=== PATIENT | female | born 1980 | race Caucasian/White ===

== ENCOUNTER → 2022-11-02 | Outpatient (CLI) | payer OTHER | END | disposition home or self-care (01) | LOC: LAB 09:45 → LAB SHORT 09:45 | DX: R30.0 Dysuria (principal) | CPT/HCPCS: 87077; 87086; 87186 ==

== ENCOUNTER 2024-04-26 11:12 | Day surgery (SDC) | payer OTHER ==
[2024-04-26] VITALS (9 sets, daily range): BP systolic 96–124; BP diastolic 57–97
[~2024-04-26] VITALS: Ht 167.6 cm; Wt 68.6 kg
[~2024-04-26 11:12] MED LIST: CeFAZolin Sodium 2,000 MG VIAL ONE; CeFAZolin Sodium 2,000 MG in NS 100 ML IV SCH; Dexamethasone Sod Phos 10 MG/ML 1ML VIAL ONE; DiphenhydrAMINE HCl 50 MG/ML 1ML Vial ONE; HYDROmorphone HCl/Pf 1MG SYR ONE; Ketorolac Tromethamine 30mg Vial ONE; Lactated Ringer's 1,000 ML IV SCH; Metoclopramide HCl 5MG / ML 2ML Vial ONE; Ondansetron HCl 2 MG / ML 2ML Vial ONE; Rocuronium Bromide 10 MG/ML 5ML Injection IV ONE; propofoL 40 ML IV ONE
[2024-04-26] MEDS ORDERED: TERB250 PO (11:35)
[2024-04-26] MEDS ORDERED: Bupivacaine 0.5% HCl 5 MG/ML 30MLVIAL ONE (11:44)
[2024-04-26] MEDS ORDERED: Acetaminophen 500 MG Tab PO ONE (11:50)
--- NOTE | 2024-04-26 11:56 | NUR ---
History, Chart, Medications and Allergies reviewed before start of procedure. Patient confirms NPO status and agrees with scheduled surgery. , Salvador, at bedside.
[2024-04-26] MEDS ORDERED: Rocuronium Bromide 10 MG/ML 5ML Injection IV ONE (12:32)
[2024-04-26] MEDS ORDERED: Sugammadex Sodium 200 MG/2ML SDV (100 MG/ML) ONE (12:32)
[2024-04-26] MEDS ORDERED: FentaNYL Citrate 50 MCG/ML 2 ML Injection ONE (13:48)
[2024-04-26] MEDS ORDERED: propofoL 40 ML IV ONE (13:53)
[2024-04-26] MEDS ORDERED: propofoL 20 ML IV ONE (14:27)
[2024-04-26] MEDS ORDERED: OxyCODONE 5 mg/Acetamin 325 mg TABLET PO PRN (15:05)
--- NOTE | 2024-04-26 15:19 | NUR ---
PT TO DAY SURGERY STEP DOWN FROM PACU WITH HERNIA REPAIRS; BEDSIDE REPORT RECEIVED. PT IS AWAKE, ALERT, AND ORIENTED; ABLE TO MOVE SELF IN BED. PT HAS 4 ABD INCISIONS-3 ACROSS MID ABD AND ONE RLQ. UMBILLICAL INCISION HAS BALL GAUZE DRESSING IN PLACE, OTHER 3 ARE CLOSED WITH EXOFIN. ALL 4 INCISIONS ARE C/D/I. PT DENIES PAIN AT THIS TIME.
--- NOTE | 2024-04-26 15:29 | NUR ---
PT TOLERATING PO FLUIDS WELL. INCISIONS REMAIN C/D/I
--- NOTE | 2024-04-26 15:35 | NUR ---
ICE PACK TO ABD
--- NOTE | 2024-04-26 15:44 | NUR ---
Discharge instructions reviewed with patient. Patient verbalizes understanding. Copy given to patient to take home. Patient States Post-Procedure ride home has been arranged.
--- NOTE | 2024-04-26 15:55 | NUR ---
Patient up to Ambulate independently. Gait steady. Up to void.
--- NOTE | 2024-04-26 16:01 | NUR ---
Discharged via wheelchair to private car for ride home.
== END 2024-04-26 16:02 | disposition home or self-care (01) ==
LOC: ORSCMMR 11:12 → ORD 13:30 → ORSCMMR 13:30
DX: K40.00 Bilateral inguinal hernia, with obstruction, without gangrene, not specified as recurrent (principal); K42.0 Umbilical hernia with obstruction, without gangrene; K41.00 Bilateral femoral hernia, with obstruction, without gangrene, not specified as recurrent; D17.79 Benign lipomatous neoplasm of other sites; F41.9 Anxiety disorder, unspecified; Z79.899 Other long term (current) drug therapy
CPT/HCPCS: 88304; A9270; C1781; J0690; J1100; J1171; J1200; J1885; J2405; J2704; J2765; J3010; J7120

== ENCOUNTER → 2024-06-13 | Outpatient (CLI) | payer OTHER ==
[~2024-06-13] MED LIST changes: -CeFAZolin Sodium 2,000 MG VIAL ONE; -CeFAZolin Sodium 2,000 MG in NS 100 ML IV SCH; -Dexamethasone Sod Phos 10 MG/ML 1ML VIAL ONE; -DiphenhydrAMINE HCl 50 MG/ML 1ML Vial ONE; -HYDROmorphone HCl/Pf 1MG SYR ONE; -Ketorolac Tromethamine 30mg Vial ONE; -Lactated Ringer's 1,000 ML IV SCH; -Metoclopramide HCl 5MG / ML 2ML Vial ONE; -Ondansetron HCl 2 MG / ML 2ML Vial ONE; -Rocuronium Bromide 10 MG/ML 5ML Injection IV ONE; +TERB250 PO; -propofoL 40 ML IV ONE
[2024-06-19 05:16] LABS: HPV HIGH RISK BY TMA Not Detected; HPV SOURCE Cervical
== END | disposition home or self-care (01) ==
LOC: LAB 13:37 → LAB SHORT 13:37
PROVIDERS: Family Medicine
DX: Z12.4 Encounter for screening for malignant neoplasm of cervix (principal)
CPT/HCPCS: 87624; G0123